=== PATIENT | female | born 1935 | race Two or more races ===

== ENCOUNTER 2017-11-14 11:47 | Emergency (ER) | payer OTHER ==
[~2017-11-14] VITALS: Ht 157.5 cm; Wt 61.2 kg
[2017-11-14 11:58] VITALS: BP 156/71
[2017-11-14] MEDS ORDERED: HYDROcodone-ACET 10/325MG TAB PO ONE (12:45)
== END 2017-11-14 14:22 | disposition home or self-care (01) ==
LOC: EDBD 11:47 → ER 11:47
DX: S52.511A Displaced fracture of right radial styloid process, initial encounter for closed fracture (principal); I10 Essential (primary) hypertension; Z95.0 Presence of cardiac pacemaker; V49.9XXA Car occupant (driver) (passenger) injured in unspecified traffic accident, initial encounter; Y93.89 Activity, other specified; Y92.89 Other specified places as the place of occurrence of the external cause; Y99.8 Other external cause status
CPT/HCPCS: 29125; 73110